=== PATIENT | female | born 1995 | race Caucasian/White ===

== ENCOUNTER 2023-07-07 23:03 | Inpatient (IN) | payer OTHER, SELFPAY ==
[~2023-07-07] VITALS: Ht 154.9 cm; Wt 43.2 kg
[2023-07-07 23:33] LABS: HEMATOCRIT 40.5 % (36.0-47.0); HEMOGLOBIN 13.4 g/dl (12.0-15.5); MEAN CORPUSCULAR HEMOGLOBIN 31.7 pg (27.0-33.0); MEAN CORPUSCULAR HGB CONC 33.1 g/dl (32.0-36.5); MEAN CORPUSCULAR VOLUME 95.7 fl (80.0-96.0); PLATELET COUNT, AUTOMATED 299 10^3/uL (150-450); RED BLOOD COUNT 4.23 10^6/uL (4.00-5.40); WHITE BLOOD COUNT 19.4 10^3/uL (4.0-10.0)
[2023-07-07 23:52] LABS: BARBITURATES URINE NEGATIVE (NEGATIVE); COCAINE METABOLITE URINE NEGATIVE (NEGATIVE); METHADONE URINE NEGATIVE (NEGATIVE); OPIATES URINE NEGATIVE (NEGATIVE)
[2023-07-07 23:53] LABS: AMPHETAMINES LEVEL URINE NEGATIVE (NEGATIVE); BENZODIAZEPINES URINE NEGATIVE (NEGATIVE); PHENCYCLIDINE URINE NEGATIVE (NEGATIVE)
[2023-07-07 23:54] LABS: CANNABINOIDS URINE POSITIVE (NEGATIVE); ETHYL ALCOHOL (ETHANOL) 0.096 % (0.000-0.010)
[2023-07-07 23:56] LABS: ALBUMIN 4.2 G/DL (3.2-5.2); ALKALINE PHOSPHATASE 47 U/L (46-116); ALT/SGPT 12 U/L (7.0-40); AST/SGOT 20 U/L (<34); BILIRUBIN,DIRECT 0.2 MG/DL (<0.4); BILIRUBIN,TOTAL 0.5 MG/DL (0.3-1.2); BLOOD UREA NITROGEN 10 MG/DL (9-23); CARBON DIOXIDE LEVEL 22 MMOL/L (20-31); CHLORIDE LEVEL 112 MMOL/L (98-107); CREATININE FOR GFR 0.56 MG/DL (0.55-1.30); GLOMERULAR FILTRATION RATE > 60.0 (>60); GLUCOSE, FASTING 90 MG/DL (60-100); SALICYLATE LEVEL < 3.0 MG/DL (<30); SODIUM LEVEL 142 MMOL/L (136-145); TOTAL PROTEIN 6.8 G/DL (5.7-8.2)
[2023-07-07 23:58] LABS: THYROID STIMULATING HORMONE 3.153 uIU/ML (0.55-4.78)
[2023-07-08 00:18] LABS: APPEARANCE, URINE CLEAR (CLEAR); BACTERIA, URINE AUTO NEGATIVE (NEGATIVE); BILIRUBIN, URINE AUTO NEGATIVE (NEGATIVE); BLOOD, URINE BLOOD NEGATIVE (NEGATIVE); COLOR, URINE COLORLESS (YELLOW); GLUCOSE, URINE (UA) AUTO NEGATIVE (NEGATIVE); KETONE, URINE AUTO NEGATIVE (NEGATIVE); LEUKOCYTE ESTERASE, URINE AUTO NEGATIVE (NEGATIVE); NITRITE, URINE AUTO NEGATIVE (NEGATIVE); PROTEIN, URINE AUTO NEGATIVE (NEGATIVE); RBC, URINE AUTO 0 /HPF (0-3); SPECIFIC GRAVITY URINE AUTO 1.002 (1.002-1.035); SQUAMOUS EPITHELIAL CELL UR AU 0 /HPF (0-6); UROBILINOGEN, URINE AUTO 0.2 mg/dL (0.0-2.0); WBC, URINE AUTO 0 /HPF (0-3)
[2023-07-08 08:02] LABS: HCG, SERUM QUALITATIVE NEGATIVE (NEGATIVE)
[2023-07-08] MEDS ORDERED: LO LTAB PO (08:11)
[2023-07-08] MEDS ORDERED: LORA1TAB23 PO (08:11)
[2023-07-08 08:37] LABS: HEMATOCRIT 40.5 % (36.0-47.0); HEMOGLOBIN 13.6 g/dl (12.0-15.5); MEAN CORPUSCULAR HEMOGLOBIN 31.3 pg (27.0-33.0); MEAN CORPUSCULAR HGB CONC 33.6 g/dl (32.0-36.5); MEAN CORPUSCULAR VOLUME 93.3 fl (80.0-96.0); PLATELET COUNT, AUTOMATED 275 10^3/uL (150-450); RED BLOOD COUNT 4.34 10^6/uL (4.00-5.40); WHITE BLOOD COUNT 17.9 10^3/uL (4.0-10.0)
[2023-07-08] MEDS ORDERED: MED REC IN PROGRESS XX SCH (09:30)
[2023-07-08] MEDS ORDERED: ATIV1TAB10 PO (10:10)
[2023-07-08] MEDS ORDERED: HOME MED LIST COMPLETE! XX SCH (10:25)
[2023-07-08] MEDS ORDERED: IBUPROFEN 400MG TAB PO PRN (13:05)
[2023-07-08] MEDS ORDERED: ACETAMINOPHEN TAB 650MG DOSE (2X325MG) PO PRN (13:05)
[2023-07-08] MEDS ORDERED: MOM 30ML SUSPENSION UDC PO PRN (13:05)
[2023-07-08] MEDS ORDERED: LORazepam 2 MG TAB PO PRN (13:05)
[2023-07-08] MEDS ORDERED: MAALOX 30 ML SUSP *UDC PO PRN (13:05)
[2023-07-08] MEDS: OLANZapine ORAL DISINTEGRATING TAB 5MG PO PRN (14:43)
[2023-07-08] MEDS ORDERED: LORazepam 1 MG TAB PO STA (18:54)
[2023-07-08] MEDS: THIAMINE 100 MG TAB PO SCH (21:00)
[2023-07-09 06:33] VITALS: BP 129/77; TEMP 99.1; O2SAT 100
[2023-07-09 08:00] VITALS: BP 129/77
[2023-07-09] MEDS: MULTIVITAMINS/MINERALS THERAP 1 TAB PO SCH (09:00)
[2023-07-09] MEDS: FOLIC ACID 1MG TAB PO SCH (09:00)
[2023-07-09] MEDS: THIAMINE 100 MG TAB PO SCH ×2 (09:00→20:29)
[2023-07-09] MEDS: OLANZapine ORAL DISINTEGRATING TAB 5MG PO PRN ×2 (10:44→17:33)
[2023-07-09] MEDS ORDERED: LORazepam 1 MG TAB PO ONE (10:45)
[2023-07-09] MEDS ORDERED: LORazepam 0.5 MG TAB PO PRN (13:05)
[2023-07-09 17:16] VITALS: BP 133/81; TEMP 98.2
[2023-07-09 17:30] VITALS: BP 133/81
[2023-07-09] MEDS: diphenhydrAMINE 25MG CAP PO PRN (17:33)
[2023-07-09] MEDS: traZODone 50 MG TAB PO PRN (20:29)
[2023-07-09] MEDS: OLANZapine 2.5MG TABLET PO SCH (20:29)
[2023-07-09 20:44] VITALS: BP 133/72
[2023-07-10 06:29] VITALS: BP 128/83; TEMP 98.6; O2SAT 97
[2023-07-10] MEDS: FOLIC ACID 1MG TAB PO SCH (10:04)
[2023-07-10] MEDS: THIAMINE 100 MG TAB PO SCH (10:04)
[2023-07-10] MEDS: MULTIVITAMINS/MINERALS THERAP 1 TAB PO SCH (10:04)
[2023-07-10] MEDS: ESCITALOPRAM OXALATE 10 MG TAB (LEXAPRO) PO SCH (10:04)
[2023-07-10] MEDS: OLANZapine ORAL DISINTEGRATING TAB 5MG PO PRN (10:06)
[2023-07-10 17:39] VITALS: BP 150/62; TEMP 98.5
[2023-07-10] MEDS: OLANZapine 2.5MG TABLET PO SCH (21:10)
[2023-07-10] MEDS: traZODone 50 MG TAB PO PRN (22:58)
[2023-07-11] MEDS: diphenhydrAMINE 25MG CAP PO PRN (00:52)
[2023-07-11 06:31] VITALS: BP 150/70; TEMP 97.1
[2023-07-11] MEDS: ESCITALOPRAM OXALATE 10 MG TAB (LEXAPRO) PO SCH (08:27)
[2023-07-11 09:22] VITALS: BP 150/70; TEMP 97.1; O2SAT 97
[2023-07-11] MEDS: NICOTINE 21MG/24HR 1 EA TRANSDERMAL TD SCH (10:38)
[2023-07-11 17:48] VITALS: BP 119/82; TEMP 98.1
[2023-07-11] MEDS: LO LOESTRIN FE PO SCH (20:45)
[2023-07-11] MEDS: OLANZapine 2.5MG TABLET PO SCH (20:46)
[2023-07-11] MEDS: traZODone 50 MG TAB PO PRN (22:09)
[2023-07-12 05:43] VITALS: BP 133/80; TEMP 97.9; O2SAT 95
[2023-07-12] MEDS: ESCITALOPRAM OXALATE 10 MG TAB (LEXAPRO) PO SCH (08:02)
[2023-07-12] MEDS: NICOTINE 21MG/24HR 1 EA TRANSDERMAL TD SCH (08:02)
[2023-07-12 16:17] VITALS: BP 125/75; TEMP 98.9; O2SAT 100
[2023-07-12] MEDS: LO LOESTRIN FE PO SCH (20:56)
[2023-07-12] MEDS: traZODone 50 MG TAB PO PRN (22:33)
[2023-07-13 06:43] VITALS: BP 154/69; TEMP 98.3; O2SAT 95
[2023-07-13] MEDS: ESCITALOPRAM OXALATE 10 MG TAB (LEXAPRO) PO SCH (08:13)
[2023-07-13] MEDS: NICOTINE 21MG/24HR 1 EA TRANSDERMAL TD SCH (08:14)
[2023-07-13] MEDS ORDERED: HYDR-3363 PO (09:38)
[2023-07-13] MEDS ORDERED: TRAZ-252 PO (09:38)
[2023-07-13] MEDS ORDERED: LEXA1TAB PO (09:38)
== END 2023-07-13 14:04 | disposition home or self-care (01) | DRG 881 ==
LOC: M ED 23:03 → M ED INP 07-08 13:04 → M PSY 07-08 18:30
PROVIDERS: ADMIT Student in an Organized Health Care Education/Training Program; ATTEND Student in an Organized Health Care Education/Training Program
DX: F32.A Depression, unspecified (principal); F41.9 Anxiety disorder, unspecified; F43.10 Post-traumatic stress disorder, unspecified; F60.89 Other specific personality disorders; F10.10 Alcohol abuse, uncomplicated; F12.10 Cannabis abuse, uncomplicated; F17.200 Nicotine dependence, unspecified, uncomplicated; Z79.899 Other long term (current) drug therapy; Z91.52 Personal history of nonsuicidal self-harm; Z62.810 Personal history of physical and sexual abuse in childhood; Z62.811 Personal history of psychological abuse in childhood